=== PATIENT | female | born 1985 | race Caucasian/White ===

== ENCOUNTER 2021-02-23 10:34 | Emergency (ER) | payer OTHER ==
[~2021-02-23] VITALS: Ht 160 cm; Wt 62.7 kg
[2021-02-23 10:40] VITALS: BP 126/80
[2021-02-23] MEDS ORDERED: IOHEXOL 240 MG/ML 50ML VIAL. ONE (11:51)
--- NOTE | 2021-02-23 12:21 | PHYS DOC ---
Past History Past Medical History: No Pertinent History Alcohol Use: None Adult General Chief Complaint Chief Complaint: ABDOMINAL PAIN HPI HPI Patient is a 35-year-old female who presents to the emergency room complaining of left lower quadrant abdominal pain and intermittent rectal bleeding. Patient states that this started over the last 4 to 5 days. She states that the pain is worse anytime she does any kind of working out. She has never had pain like this previously. She states that she first noticed the rectal bleeding a few days ago and it was bright red with her stools. She states that sometimes she will have normal stools and sometimes she will have blood with her stools. The blood has been fairly consistent for last 2 days. She has had a lot of loose stools over the last few days. She has no family history of inflammatory bowel disease. Review of Systems Review of Systems Complete ROS is negative unless otherwise documented in HPI Current Medications Current Medications Current Medications Medications (Trade) Dose Ordered Sig/Rinku Start Time Stop Time Status Last Admin Dose Admin Iohexol (Omnipaque 240 Mg/ml) 50 ml STK-MED ONCE 02/23/21 11:51 02/23/21 11:52 DC Physical Exam Physical Exam General: Awake, alert, NAD. Well Nourished, well hydrated. Cooperative HEENT: Atraumatic, EOMI, PERRL, airway patent, moist oral mucosa Neck: Supple, trachea midline Respiratory: CTA bilaterally, normal effort, no wheezing/crackles CV: RRR, no murmur, cap refill <2 GI: Soft, nondistended, left-sided lower abdominal tenderness, no masses MSK: No obvious deformities Skin: Warm, dry, intact Neuro: A&O x3, speech NL, sensory and motor grossly intact, no focal deficits Psych: Normal affect, normal mood, not suicidal or homicidal Current Patient Data Vital Signs Vital Signs Date Time Temp Pulse Resp B/P (MAP) Pulse Ox O2 Delivery O2 Flow Rate FiO2 02/23/21 10:40 97.3 16 126/80 (95) 97 Room Air EKG EKG [] Radiology/Procedures Radiology/Procedures [] Heart Score C/O Chest Pain: N/A Risk Factors: Risk Factors: DM, Current or recent (<one month) smoker, HTN, HLP, family history of CAD, obesity. Risk Scores: Risk Factors: DM, Current or recent (<one month) smoker, HTN, HLP, family history of CAD, obesity. Course & Med Decision Making Course & Med Decision Making Pertinent Labs and Imaging studies reviewed. (See chart for details) Patient is a previously healthy 35-year-old female who presents to the emergency room complaining of left lower quadrant abdominal tenderness with intermittent rectal bleeding. Patient is overall well-appearing. She does have left-sided abdominal tenderness. Differential diagnosis includes colitis, inflammatory bowel disease, diverticulitis, hemorrhoids. CT abdomen pelvis and abdominal lab work were ordered. Patient is very well-appearing on exam. Patient does have some diverticulosis on CT. We will treat her with Levsin. Patient's test results and vitals while in the ED were fully reviewed and discussed with the patient. Patient is stable and at this time does not need admission to the hospital. We have discussed strict return precautions and the importance of following up with their Primary Care Physician. Patient stated understanding and was given an opportunity to ask any questions. Patient is in agreement with plan. Dragon Disclaimer Dragon Disclaimer This electronic medical record was generated, in whole or in part, using a voice recognition dictation system. Departure Departure: Impression: Primary Impression: Diverticulitis Disposition: HOME SELF CARE/HOMELESS Condition: STABLE Referrals: SHAD GONZALEZ DO (PCP) Patient Instructions: Diverticulitis Scripts Hyoscyamine Sulfate (LEVSIN-SL) 0.125 Mg Tab.subl 2-Nov TAB SL PRN Q4HRS PRN for pain for 5 Days, #60 TAB 0 Refills Prov: CONSTANTINE RUIZ MD 02/23/21 Amoxicillin/Potassium Clav (AUGMENTIN 500-125 TABLET) 1 Each Tablet 1 TAB PO BID for diverticulitis for 7 Days, #14 TAB 0 Refills Prov: CONSTANTINE RUIZ MD 02/23/21 CONSTANTINE RUIZ MD Feb 23, 2021 12:21
[2021-02-23 12:23] LABS: BASO % 1 % (0-3); EOS # 0.1 x10^3/uL (0.0-0.7); EOS % 2 % (0-3); HEMATOCRIT 41.4 % (36.0-47.0); HEMOGLOBIN 13.7 g/dL (12.0-15.5); LYMPH # 1.9 x10^3/uL (1.0-4.8); LYMPH % 28 % (24-48); MEAN CORPUSCULAR HEMOGLOBIN 31 pg (25-35); MEAN CORPUSCULAR HGB CONC 33 g/dL (31-37); MEAN CORPUSCULAR VOLUME 92 fL (79-100); MONO # 0.3 x10^3/uL (0.0-1.1); MONO % 5 % (0-9); NEUT # 4.6 x10^3uL (1.8-7.7); NEUT % 66 % (31-73); PLATELET COUNT 254 x10^3/uL (140-400); WHITE BLOOD COUNT 6.9 x10^3/uL (4.0-11.0)
[2021-02-23 12:32] LABS: CALCIUM 8.9 mg/dL (8.5-10.1); CREATININE 0.9 mg/dL (0.6-1.0); GFR 70.8; POTASSIUM 3.6 mmol/L (3.5-5.1)
[2021-02-23 12:39] LABS: ALBUMIN/GLOBULIN RATIO 1.1 (1.0-1.7); TOTAL BILIRUBIN 0.7 mg/dL (0.2-1.0); TOTAL PROTEIN 7.6 g/dL (6.4-8.2)
[2021-02-23] MEDS ORDERED: CONTRAST GIVEN. MC PRN (12:45)
[2021-02-23] MEDS ORDERED: IOHEXOL 300 MG/ML 75 ML VIAL. IV ONE (12:45)
--- NOTE | 2021-02-23 13:34 | RAD ---
Exam: CT abdomen/pelvis with intravenous contrast Indication: Rectal bleeding, abdominal pain left side Comparison: None Technique: Helical CT imaging performed of the abdomen and pelvis after the intravenous administratio n of 35 mL Omnipaque 300 intravenous contrast. Sagittal and coronal reformats were obtained. One or more of the following individualized dose reduction techniques were utilized for this examinat ion: 1. Automated exposure control 2. Adjustment of the mA and/or kV according to patient size 3. Use of iterative reconstruction technique. Findings: Lower chest: Mild atelectasis in the right lower lobe. The heart is normal in size. Liver: Liver measures 19.2 cm in length. No focal lesion. Gallbladder/Biliary Tree: Normal. Pancreas: Normal. Spleen: Normal. Adrenal Glands: Normal. Kidneys/Ureters/Bladder: The kidneys are normal in size and enhance symmetrically. There is no hydron ephrosis. There are subcentimeter hypodensities in the left kidney measuring up to 7 mm, too small ch aracterize. No hydronephrosis. Ureters and bladder are normal. Reproductive Organs: Uterus is anteverted. Small amount of fluid in the endometrial canal. There is a 2.2 cm right ovarian cyst. The left ovary is normal in appearance. Stomach, small bowel, and colon: The stomach, small bowel and appendix are normal. There are minimal diverticula in the sigmoid colon. No evidence of acute diverticulitis. Vasculature: Abdominal aorta is normal in caliber. Lymph Nodes: No lymphadenopathy. Peritoneum and retroperitoneum: Trace free fluid in the pelvis. No free air. Bones: No acute osseous abnormality. A few small sclerotic foci in the pelvis and right femur likely bone islands. Impression: 1. No acute abnormality. 2. 2.2 cm right ovarian cyst. 3. Minimal sigmoid diverticulosis without acute diverticulitis. Electronically signed by: Catherine Bass MD (02/23/2021 1:31 PM) [id number]
[2021-02-23] MEDS ORDERED: AMOX1TAB58 PO (14:11)
[2021-02-23] MEDS ORDERED: HYOS0.1265 SL (14:11)
== END 2021-02-23 14:23 | disposition home or self-care (01) ==
LOC: ER 10:34
DX: K57.92 Diverticulitis of intestine, part unspecified, without perforation or abscess without bleeding (principal)
CPT/HCPCS: 36415; 74177; 80053; 85025; 99285; Q9967

== ENCOUNTER → 2021-03-17 | Outpatient (CLI) | payer OTHER ==
[2021-02-23 10:40] VITALS: BP 126/80
[~2021-03-17] MED LIST: AMOX1TAB58 PO; HYOS0.1265 SL; IOHEXOL 240 MG/ML 50ML VIAL. ONE; IOHEXOL 300 MG/ML 75 ML VIAL. IV ONE
--- NOTE | 2021-03-18 07:30 | RAD ---
Exam Date: 03/17/2021 4:[address] ABDOMEN+PELVIS W Indication: Reason: LLQ PAIN. BLOATING / Spl. Instructions: / History: TECHNIQUE: CT examination of the abdomen and pelvis was performed following the administration of or al and nonionic intravenous contrast. One or more of the following dose reduction techniques were ut ilized: *Automated exposure control (AEC) *Adjustment of mA and/or kV according to patient size *Use of iterative reconstruction technique *CT scan done according to ALARA, or ALARA/IMAGE GENTLY COMPARISON: February 23, 2021 FINDINGS: The visualized lung bases are clear. A small left renal cyst is again seen. The liver, gallbladder, spleen, pancreas, adrenal glands and kidneys are otherwise normal. Urinary bladder is normal in appearance. There is no bowel obstruction or inflammation. The appendix is normal. No significant atherosclerotic calcifications are seen. No lymphadenopathy or ascites is seen. Osseous structures are intact. IMPRESSION: No evidence of acute intra-abdominal pathology. Electronically signed by: Regis Klein MD (03/18/2021 7:27 AM) [id number]
== END ==
LOC: CT 15:33
PROVIDERS: ATTEND Family Medicine
DX: N28.1 Cyst of kidney, acquired (principal); R14.0 Abdominal distension (gaseous)
CPT/HCPCS: 74177; Q9967